=== PATIENT | male | born 1985 | race Caucasian/White ===

== ENCOUNTER 2018-03-20 14:26 | Emergency (ER) | payer OTHER ==
[2018-03-20] MEDS ORDERED: LIDOCAINE 1% INJ-PF (10 MG/ML) 30 ML SDV INJ ONE (15:18)
[2018-03-20] MEDS ORDERED: OXYCODONE-ACETAMINOPHEN 5-325 MG TABLET PO ONE (15:19)
--- NOTE | 2018-03-20 15:20 | ER Document Report ---
ED Wound - General Chief Complaint: Laceration Stated Complaint: LACERATION LEFT THUMB Time Seen by Provider: 03/20/18 15:14 Mode of Arrival: Ambulatory Information source: Patient TRAVEL OUTSIDE OF THE [place] IN LAST 30 DAYS: No - HPI Patient complains to provider of: Laceration Occurred: Just prior to arrival Onset/Duration: Sudden Quality of pain: Achy, Fullness, Pressure Context: Injury, Spontaneous Skin Color: Normal Capillary refill: < 3 seconds Sensations intact: Yes Associated Symptoms: None Notes: Patient is a 32-year-old male presenting to the emergency room today complaining of laceration to his left thumb that occurred just prior to arrival while he was at work, he accidentally cut the thumb on a piece of metal, he did initially present to urgent care who sent him to the emergency room because they were concerned that he cut "a blood vessel", patient denies any other injury, last tetanus shot was greater than 5 years ago - Related Data Allergies/Adverse Reactions: No Known Allergies Allergy (Unverified 03/20/18 14:27) Past Medical History - General Information source: Patient - Social History Smoking Status: Unknown if Ever Smoked Family History: Reviewed & Not Pertinent Review of Systems - Review of Systems Constitutional: No symptoms reported EENT: No symptoms reported Cardiovascular: No symptoms reported Respiratory: No symptoms reported Gastrointestinal: No symptoms reported Genitourinary: No symptoms reported Male Genitourinary: No symptoms reported Musculoskeletal: No symptoms reported Skin: See HPI Hematologic/Lymphatic: No symptoms reported Neurological/Psychological: No symptoms reported -: Yes All other systems reviewed and negative Physical Exam - Vital signs Vitals: Temp Pulse Resp BP Pulse Ox 97.4 F 80 14 160/90 H 96 03/20/18 14:37 03/20/18 14:37 03/20/18 14:37 03/20/18 14:37 03/20/18 14:37 - Notes Notes: - General General appearance: Appears well, Alert In distress: None - HEENT Head: Normocephalic, Atraumatic Eyes: Normal Conjunctiva: Normal Extraocular movements intact: Yes Eyelashes: Normal Pupils: PERRL - Respiratory Respiratory status: No respiratory distress - Cardiovascular Rhythm: Regular - Abdominal Inspection: Normal - Back Back: Normal - Extremities General upper extremity: Left thumb with 2 cm laceration with flap to the lateral surface over the DIP, distal sensation and motor is intact with full range of motion, no evidence of tendon injury, brisk capillary refill General lower extremity: Normal inspection - Neurological Neuro grossly intact: Yes Orientation: AAOx4 Scottie Coma Scale Eye Opening: Spontaneous [place] Coma Scale Verbal: Oriented [place]ie Coma Scale Motor: Obeys Commands [place] Coma Scale Total: 15 - Psychological Associated symptoms: Normal affect, Normal mood - Skin Skin Temperature: Warm Skin Moisture: Dry Skin Color: Normal Course - Re-evaluation Re-evalutation: 03/20/18 16:05 Repaired using sutures, patient given wound care instructions and instructions for follow-up, advised to return if symptoms worsen, patient acknowledges understanding and agreement with this plan - Vital Signs Vital signs: Temp Pulse Resp BP Pulse Ox 97.4 F 80 14 160/90 H 96 03/20/18 14:37 03/20/18 14:37 03/20/18 14:37 03/20/18 14:37 03/20/18 14:37 Procedures - Immobilization Left Thumb Time completed: 16:05 Pre-Proc Neuro Vasc Exam: Normal Immobilizer type: Finger splint (Static) Performed by: Provider Post-Proc Neuro Vasc Exam: Normal Alignment checked and good: Yes - Laceration/Wound Repair Left Thumb Time completed: 16:05 Wound length (cm): 2 Wound's Depth, Shape: Irregular, Flap Laceration pre-procedure: Sterile PPE donned, Sterile drapes applied, Shur- Clens applied Anesthetic type: 1% Lidocaine Volume Anesthetic (mLs): 4 Wound explored: Clean Irrigated w/ Saline (mLs): 400 Wound Repaired With: Sutures Suture Size/Type: 4:0, Nylon Number of Sutures: 4 Post-procedure wound care: Splint applied Post-procedure NV exam normal: Yes Complications: No Hands back picture: 1 - 2 cm laceration Discharge - Discharge Clinical Impression: Thumb laceration Qualifiers: Encounter type: initial encounter Damage to nail status: without damage Foreign body presence: without foreign body Laterality: left Qualified Code(s): S61.012A - Laceration without foreign body of left thumb without damage to nail , initial encounter Condition: Stable Disposition: HOME, SELF-CARE Instructions: Antibiotic Ointment Protection ([facility]), Laceration Care (OM), Prophylactic Antibiotic (OM), Soap Cleansing ([facility]), Tetanus Immunization Given ([facility]) Additional Instructions: Follow up with your primary care provider in 2-3 days for wound check. Keep wound clean and covered with antibiotic ointment and a clean dressing. Gently rinse with warm water and soap twice daily. Sutures to be removed in 10-12 days. Return to the emergency room immediately if symptoms worsen or any additional concerns. Prescriptions: Cephalexin Monohydrate [Keflex 500 mg Capsule] 500 mg PO BID #20 capsule Hydrocodone/Acetaminophen [Hydrocodon-Acetaminophen 5-325] 1 each PO Q6 #10 tablet Forms: Return to Work
[2018-03-20] MEDS ORDERED: TETANUS/DIPHTHERIA TOX-ADULT 0.5 ML SYR (>=7YO) IM ONE (15:27)
[2018-03-20 16:38] VITALS: BP 151/99
== END 2018-03-20 16:40 | disposition home or self-care (01) ==
LOC: ER 14:26
DX: S61.012A Laceration without foreign body of left thumb without damage to nail, initial encounter (principal); W45.8XXA Other foreign body or object entering through skin, initial encounter; Y99.0 Civilian activity done for income or pay
CPT/HCPCS: 90471; 90714; 99283

== ENCOUNTER 2019-05-08 05:09 | Emergency (ER) | payer OTHER ==
[2019-05-08] MEDS ORDERED: KETOROLAC TROMETHAMINE 60 MG/2 ML SDV IM ONE (08:33)
[2019-05-08] MEDS ORDERED: CYCLOBENZAPRINE HCL 10 MG TABLET PO ONE (08:33)
[2019-05-08] MEDS ORDERED: LIDOCAINE 5% (700 MG) TRANSDERMAL ADH..PATCH TP ONE (08:34)
--- NOTE | 2019-05-08 08:39 | ER Document Report ---
HPI - HPI Patient complains to provider of: Left hip pain Time Seen by Provider: 05/08/19 08:18 Pain Level: 5 Context: Patient is a 33-year-old male presents to the emergency department with chronic left hip pain. Patient voices that when he was in the [employer] approximately 2014 he injured his left knee. States he has been compensating trying to not use the left knee so he has inevitably injured the right knee. Patient voices that he then developed pain in bilateral hips. States pain in his left hip has been severe for the last week. States he did go to a chiropractor yesterday for an adjustment which "typically helps", but he got no relief. Patient voices he [facility]. States he did make an appointment at the [facility] but cannot see anybody until the middle of July. Patient voices that the pain has been 5 out of 5 and although denies taking any [id number] medications for same. Patient's denying any loss of bowel or bladder, urinary retention. Patient's denying any numbness or tingling in any extremity. Nurses note states questionable blood in stool. 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 Patient's denying any medical problems, takes Zyrtec for seasonal allergies, allergy to Bactrim. - GASTROINTESTINAL Gastrointestinal: REPORTS: Black / Bloody Stools - possibly - MUSCULOSKELETAL Musculoskeletal: REPORTS: Extremity pain Past Medical History - General Information source: Patient - Social History Smoking Status: Never Smoker Chew tobacco use (# tins/day): Yes Frequency of alcohol use: Rare Drug Abuse: None Family History: Reviewed & Not Pertinent Patient has suicidal ideation: No Patient has homicidal ideation: No Pulmonary Medical History: Reports: Hx Asthma - induced by allergies Renal/ Medical History: Denies: Hx Peritoneal Dialysis Vertical Provider Document - CONSTITUTIONAL Agree With Documented VS: Yes Notes: GENERAL: Alert, interacts well. No acute distress. HEAD: Normocephalic, atraumatic. EYES: Pupils equal, round, and reactive to light. Extraocular movements intact. ENT: Oral mucosa moist, tongue midline. NECK: Full range of motion. Supple. Trachea midline. LUNGS: Clear to auscultation bilaterally, no wheezes, rales, or rhonchi. No respiratory distress. HEART: Regular rate and rhythm. No murmur ABDOMEN: Soft, non-tender. Non-distended. Bowel sounds present in all 4 quadrants. EXTREMITIES: Moves all 4 extremities spontaneously. No edema, normal radial and dorsalis pedis pulses bilaterally. No cyanosis. 5 out of 5 strength all 4 extremities. Generalized pain on palpation left buttocks radiating down left lower extremity. BACK: no cervical, thoracic, lumbar midline tenderness. No saddle anesthesia, normal distal neurovascular exam. NEUROLOGICAL: Alert and oriented x3. Normal speech. cranial nerves II through XII grossly intact. PSYCH: Normal affect, normal mood. SKIN: Warm, dry, normal turgor. No rashes or lesions noted. - INFECTION CONTROL TRAVEL OUTSIDE OF THE [place] IN LAST 30 DAYS: No Course - Re-evaluation Re-evalutation: 05/08/19 08:38 Presentation of a well appearing patient complaining of acute on chronic hip pain. No rapid progression of symptoms, systemic symptoms including fevers, chills, weight loss, history of recent bacterial infection, bilateral symptoms, numbness, weakness, difficulty walking, urinary retention or bowel incontinence, personal history of cancer, immunosuppression, diabetes, known AAA, or history of IV drug use. Exam is without point tenderness over vertebral bodies, pulsatile abdominal mass, and patient has symmetric and intact lower extremity strength, sensation, and reflexes without clonus. 2+ symmetric medial malleolar and dorsalis pedis pulses Based on history and physical, I have a very low suspicion of a concerning etio logy of pain including epidural compression syndrome, spinal infection, transverse myelitis, malignancy, abdominal aortic aneurysm, renal colic, acute lower extremity claudication, neurogenic claudication, ankylosing spondylitis, or other intra-abdominal process. Due to absence of concerning risk factors in history and physical as well as absence of rapidly progressive, severe, or bilateral symptoms, will defer imaging at this point. Discussed with patient [facility]. Patient voices he would like orth[facility], phone numbers will be provided. At this time will discharge with return precautions and follow-up recommendations. Verbal discharge instructions given a the bedside and opportunity for questions given. Medication warnings reviewed. Patient is in agreement with this plan and has verbalized understanding of return precautions and the need for primary care follow-up in the next 24-72 hours. This medical record was dictated with voice recognizing software. There may be grammatical, syntax errors that are unintended. - Vital Signs Vital signs: Temp Pulse Resp BP Pulse Ox 97.7 F 75 16 154/95 H 95 05/08/19 05:11 05/08/19 05:11 05/08/19 05:11 05/08/19 05:11 05/08/19 05:11 Discharge - Discharge Clinical Impression: Left hip pain Sciatica Qualifiers: Laterality: left Qualified Code(s): M54.32 - Sciatica, left side Condition: Stable Disposition: HOME, SELF-CARE Instructions: Sciatica ([facility]) Additional Instructions: As we discussed you have been seen and treated in the emergency department for your chronic left hip and left lower leg pain. You need to follow-up with orthopedics, phone numbers will be provided in this packet. Please use prescription medications only as prescribed. Please return to the emergency room for any further concerns. You have been seen in the Emergency Department (ED) today for back pain. Your workup and exam have not shown any acute abnormalities and you are likely suffering from muscle strain or possible problems with your discs, but there is no treatment that will fix your symptoms at this time. Please take the naproxen that has been prescribed as directed. You should also purchase a local lidocaine cream such as "aspercreme with lidocaine" and use per bottle instructions to the affected area. Apply heat to the area as often as you are able. Continue to keep active and avoid prolonged periods of bed rest. Please follow up with your doctor as soon as possible regarding today's ED visit and your back pain. Return to the ED for worsening back pain, fever, weakness or numbness of either leg, or if you develop either (1) an inability to urinate or have bowel movements, or (2) loss of your ability to control your bathroom functions (if you start having "accidents"), or if you develop other new symptoms that concern you.concern you. Prescriptions: Cyclobenzaprine HCl [Flexeril 10 mg Tablet] 10 mg PO TIDP PRN #15 tab PRN Reason: Lidocaine [Lidoderm 5% (700 mg) Transdermal Patch] 1 patch TP DAILY #30 adh..patch Naproxen 500 mg PO BID #20 tablet [facility]: [facility] [[facility]] - Follow up as needed ISELA GONSALVES MD [ACTIVE PROVISIONAL STAFF] - Follow up as needed
[2019-05-08 08:59] VITALS: BP 147/97
== END 2019-05-08 08:58 | disposition home or self-care (01) ==
LOC: ER 05:09
DX: M54.32 Sciatica, left side (principal); G89.29 Other chronic pain; M25.552 Pain in left hip
CPT/HCPCS: 99283; 96372; J1885

== ENCOUNTER 2020-03-28 12:01 | Emergency (ER) | payer OTHER ==
--- NOTE | 2020-03-28 15:44 | ER Document Report ---
ED General - General Chief Complaint: Headache Stated Complaint: HEADACHE,COUGH Time Seen by Provider: 03/28/20 15:09 Primary Care Provider: DUANE,SHAHEEN [Primary Care Provider] - Follow up as needed Mode of Arrival: Ambulatory Information source: Patient Notes: This 34-year-old man presents to the emergency department with a complaint of bilateral ear fullness and left ear pain. He also has sinus pressure and pain with congestion and drainage which began last night. He has a history of sinusitis, is using generic Zyrtec daily. He complains of headache, facial pr essure and pain with postnasal drainage. He denies fever, dizziness or vertigo- like symptoms. TRAVEL OUTSIDE OF THE [place] IN LAST 30 DAYS: No - Related Data Allergies/Adverse Reactions: sulfamethoxazole [From ] Allergy (Verified 05/08/19 07:48) trimethoprim [From [facility]] Allergy (Verified 05/08/19 07:48) Home Medications: zyrtec, prozosyn Past Medical History - Social History Smoking Status: Never Smoker Chew tobacco use (# tins/day): No Frequency of alcohol use: Occasional Drug Abuse: None Family History: Reviewed & Not Pertinent Pulmonary Medical History: Reports: Hx Asthma - induced by allergies Renal/ Medical History: Denies: Hx Peritoneal Dialysis Review of Systems - Review of Systems Notes: Constitutional: Negative for fever. HENT: See HPI Eyes: Negative for visual changes. Cardiovascular: Negative for chest pain. Respiratory: Negative for shortness of breath. Gastrointestinal: Negative for abdominal pain, vomiting or diarrhea. Genitourinary: Negative for dysuria. Musculoskeletal: Negative for back pain. Skin: Negative for rash. Neurological: Negative for headaches, weakness or numbness. 10 point ROS negative except as marked above and in HPI. Physical Exam - Vital signs Vitals: Temp Pulse Resp BP Pulse Ox 98.4 F 74 18 152/83 H 97 03/28/20 14:29 03/28/20 14:29 03/28/20 14:29 03/28/20 14:29 03/28/20 14:29 - Notes Notes: PHYSICAL EXAMINATION: Physical Exam: General: Well-nourished well-developed in no acute distress HEENT: NC/AT, pupils equal round and reactive to light, left TM with erythema and poor landmarks, right TM dullness, air-fluid level, tenderness in the maxillary and frontal sinus regions to palpation, MM moist,nares clear, oropharynx clear, airway patent Neck: supple, no adenopathy, no masses. Good range of motion Lungs: clear, no wheezing, no rales no rhonchi CVS: Regular rate and rhythm no murmur gallop or rub Abdomen: Soft, active, nontender, no masses, no hepatosplenomegaly Ext: No edema, clubbing or cyanosis. Neuro: Alert and responsive, moving all 4 extremities on command, cranial nerves intact, no focal findings Skin: Intact no open lesions, no rash Course - Re-evaluation Re-evalutation: 03/28/20 15:42 Patient states that he is allergic to some antibiotics sulfa drugs, clindamycin also cause problems with his GI tract. I am giving him a prescription for prednisone and for Augmentin. I have explained that he should continue his decongestant medication and follow-up with his primary care doctor as needed. The patient is in agreement with this plan. - Vital Signs Vital signs: Temp Pulse Resp BP Pulse Ox 98.4 F 74 18 152/83 H 97 03/28/20 14:29 03/28/20 14:29 03/28/20 14:29 03/28/20 14:29 03/28/20 14:29 Discharge - Discharge Clinical Impression: Acute sinusitis Qualifiers: Sinusitis location: unspecified location Recurrence: not specified as recurrent Qualified Code(s): J01.90 - Acute sinusitis, unspecified Left otitis media Qualifiers: Otitis media type: unspecified Qualified Code(s): H66.92 - Otitis media, unspecified, left ear Condition: Good Disposition: HOME, SELF-CARE Instructions: Sinusitis ([facility]), Otitis Media ([facility]) Additional Instructions: You were seen in the emergency department today and diagnosed with sinusitis and a left ear infection. We have given you antibiotics and steroids to treat the symptoms. Please continue your cetirizine, you may use ibuprofen or Tylenol for pain and headache. Please follow-up with your primary care doctor as needed If your symptoms are worsening or if you have other concerns you may return to the emergency department for further evaluation and treatment. HOME CARE INSTRUCTIONS & INFORMATION: Thank you for choosing us for your medical needs. We hope you're satisfied with the care you received. After you leave, you must properly care for your problem and, at the same time, observe its progress. Any condition can change. Some illnesses can change rapidly over hours or days. If your condition worsens, return to the Emergency Department or see your physician promptly. ABOUT YOUR X-RAYS AND EKG'S: If you had an EKG or X-rays taken, they have been read by the Emergency Physician. The X-rays and EKG's will also be read by a Radiologist or [employer] within 24 hours. If discrepancies are noted, you will be notified by telephone. Please be certain the ED has a correct telephone number & address where you can be reached. Also, realize that some fractures or abnormalities do not show up on initial X-rays. If your symptoms continue, see your physician. ABOUT YOUR LABORATORY TEST: If you had laboratory tests, the results have been reviewed by the Emergency Physician. Some test results (for example cultures) may not be available for several days. You will be contacted if any test result shows you need additional treatment. Please be certain the ED has a correct telephone number and address where you can be reached. ABOUT YOUR MEDICATIONS: You will receive instructions on how to take your medicine on the prescription label you receive. Additional information may be provided by the Pharmacy. If you have questions afterwards, call the ED for clarification or further instructions. Some prescribed medications may cause drowsiness. Do not perform tasks such as driving a car or operating machinery without consulting your Pharmacist. If you feel you need a refill of pain medication, your condition will need re-evaluation. Please do not call for a refill of any medication. ABOUT YOUR SIGNATURE: Signature of this document acknowledges to followin. Understanding that you received emergency treatment and that you may be re leased before al medical problems are known or treated. Please be certain the ED has a correct phone number & address where you can be reached. 2. Acknowledgement that you will arrange for follow-up care as recommended. 3. Authorization for the Emergency Physician to provide information to your follow-up Physician in order to maximize your care. AT ANY TIME, IF YOUR SYMPTOMS CHANGE SIGNIFICANTLY OR WORSEN OR YOU DEVELOP NEW SYMPTOMS, RETURN TO THE EMERGENCY DEPARTMENT IMMEDIATELY FOR RE-EVALUATION. OUR GOAL IS TO PROVIDE EXCELLENT MEDICAL CARE! WE HOPE THAT WE HAVE MET YOUR EXPECTATIONS DURING YOUR EMERGENCY DEPARTMENT VISIT AND THAT YOU FEEL YOU HAVE RECEIVED EXCELLENT CARE! Prescriptions: Amoxicillin/Potassium Clav [Augmentin 875-125 Tablet] 1 tab PO BID #20 tab Prednisone [Deltasone 20 mg Tablet] 1 tab PO BID 5 Days #10 tablet [facility]errals: [facility] [[facility]] - Follow up as needed
[2020-03-28 16:19] VITALS: BP 147/83
== END 2020-03-28 16:20 | disposition home or self-care (01) ==
LOC: ER 12:01
DX: J01.90 Acute sinusitis, unspecified (principal); H66.92 Otitis media, unspecified, left ear; Z79.899 Other long term (current) drug therapy; R09.82 Postnasal drip; R51 Headache; J45.909 Unspecified asthma, uncomplicated; Z88.1 Allergy status to other antibiotic agents; Z88.2 Allergy status to sulfonamides
CPT/HCPCS: 99283